=== PATIENT | male | born 1980 | race Caucasian/White ===

== ENCOUNTER 2020-06-09 13:39 | Emergency (ER) | payer OTHER ==
[~2020-06-09] VITALS: Ht 175.3 cm; Wt 86.2 kg
[2020-06-09 17:00] LABS: ABSOLUTE NEUTROPHILS 8.9 thou/uL (1.4-8.2); BASOPHILS 0.4 % (0.0-2.0); EOSINOPHILS 3.2 % (0.0-3.0); HEMATOCRIT 34.4 % (42.0-52.0); LYMPHOCYTES 8.5 % (24.0-44.0); MCH 24.9 pg (26.0-34.0); MONOCYTES 6.2 % (1.0-8.0); PLATELET COUNT 290 thou/uL (150-400); POLYS 81.7 % (36.0-66.0); RBC 4.41 mil/uL (4.50-6.00); RDW 18.5 % (10.5-14.5); WBC 10.9 thou/uL (4.0-11.0)
[2020-06-09 17:08] LABS: CALCIUM 8.8 mg/dL (8.5-10.1); CREATININE 0.9 mg/dL (0.7-1.3)
[2020-06-09 17:14] LABS: ALBUMIN 3.4 g/dL (3.4-5.0); TOTAL BILIRUBIN 0.6 mg/dL (0.2-1.0)
[2020-06-09 17:23] LABS: ANISOCYTOSIS 2+
[2020-06-09 17:24] LABS: MACROCYTES FEW; MICROCYTES 1+
[2020-06-09 17:25] LABS: POLYCHROMASIA OCCASIONAL
[2020-06-09] MEDS ORDERED: FLEXERIL PO (18:36)
[2020-06-09] MEDS ORDERED: MELOXICAM15 MG PO (18:36)
[2020-06-09] MEDS ORDERED: BACTRIM DS TAB1 EAC1 PO (18:36)
[2020-06-09 18:43] VITALS: BP 131/85
[2020-06-10] MEDS ORDERED: NORCO 5-325 TA1 EAC2 PO (03:53)
== END 2020-06-09 18:44 | disposition home or self-care (01) ==
LOC: ER 13:39
PROVIDERS: Physician Assistant
DX: L03.811 Cellulitis of head [any part, except face] (principal)

== ENCOUNTER 2020-06-10 00:27 | Emergency (ER) | payer OTHER ==
[~2020-06-10] VITALS: Ht 175.3 cm; Wt 83.9 kg
[~2020-06-10 00:27] MED LIST: BACTRIM DS TAB1 EAC1 PO; FLEXERIL PO; MELOXICAM15 MG PO
[2020-06-10 03:15] LABS: BASOPHILS 0.3 % (0.0-2.0); EOSINOPHILS 1.5 % (0.0-3.0); HEMATOCRIT 32.6 % (42.0-52.0); HEMOGLOBIN 10.7 gm/dL (14.0-18.0); LYMPHOCYTES 8.8 % (24.0-44.0); MCH 25.9 pg (26.0-34.0); MCHC 32.8 g/dL (28.0-37.0); MONOCYTES 5.9 % (1.0-8.0); PLATELET COUNT 241 thou/uL (150-400); POLYS 83.5 % (36.0-66.0); RBC 4.13 mil/uL (4.50-6.00); RDW 18.7 % (10.5-14.5); WBC 10.7 thou/uL (4.0-11.0)
[2020-06-10 03:25] LABS: CALCIUM 8.6 mg/dL (8.5-10.1); CREATININE 0.8 mg/dL (0.7-1.3); POTASSIUM 3.6 mmol/L (3.5-5.1)
[2020-06-10 03:40] LABS: ALBUMIN 3.2 g/dL (3.4-5.0); TOTAL BILIRUBIN 0.7 mg/dL (0.2-1.0); TOTAL PROTEIN 7.7 g/dL (6.4-8.2)
[2020-06-10] MEDS ORDERED: NORCO 5-325 TA1 EAC2 PO (03:53)
[2020-06-10 05:10] VITALS: BP 155/86
== END 2020-06-10 05:12 | disposition home or self-care (01) ==
LOC: ER 00:27
PROVIDERS: Emergency Medicine
DX: L03.221 Cellulitis of neck (principal); Z79.899 Other long term (current) drug therapy

== ENCOUNTER 2021-07-28 15:45 | Emergency (ER) | payer OTHER ==
[~2021-07-28] VITALS: Ht 175.3 cm; Wt 77.1 kg
[~2021-07-28 15:45] MED LIST changes: +NORCO 5-325 TA1 EAC2 PO
[2021-07-28 15:54] VITALS: BP 130/81
== END 2021-07-28 18:47 | disposition left against medical advice (07) ==
LOC: ER 15:45
DX: S01.511A Laceration without foreign body of lip, initial encounter (principal); S90.32XA Contusion of left foot, initial encounter; S09.90XA Unspecified injury of head, initial encounter; Z79.899 Other long term (current) drug therapy; Z79.1 Long term (current) use of non-steroidal anti-inflammatories (NSAID); Y04.0XXA Assault by unarmed brawl or fight, initial encounter; Y93.89 Activity, other specified; Y92.89 Other specified places as the place of occurrence of the external cause; Y99.8 Other external cause status

== ENCOUNTER 2021-08-20 13:16 | Emergency (ER) | payer OTHER ==
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
--- NOTE | ~2021-08-20 | EMS ---
[address] [address] EMS Patient Care Report Name: DELBERT SAUCEDO Room #: REG SUZY Law#: [id number] Admission: 08/20/21 Attend Phys: Discharge: Date of : 76 Report #: [id number] THIS REPORT FOR: //name// Report Transmitted: 08/20/2021 21:55 EMS Care Summary [place], [place]/[facility] Incident [id number] @ 08/20/2021 12:45 Incident Location [address] [place] [address] Patient DELBERT SAUCEDO Male, 41 Years 1980 Patient Address Chief Complaint COLD Disposition Transported No Lights/[place] Dispatch Reason Sick Person Transported To [facility] Narrative MEDIC 41 DISPATCHED FOR A SICK PERSON. UPON ARRIVAL ON SCENE THE PATIENT WAS FOUND LYING ON HIS SIDE ON THE FLOOR. PD WAS WITH THE PATIENT. PD STATED THE PATIENT ASKED FOR AN AMBULANCE. WHEN ASKED WHY HE WANTED TO GO TO THE HOSPITAL THE PATIENT STATED YES AND THAT HE WAS COLD. THE PATIENT APPEARED IN NO DISTRESS AND WAS HARD TO GET AN ANSWER OUT OF. THE PATIENT WAS HELPED UP AND SAT ON THE STRETCHER AND TAKEN OUT TO THE AMBULANCE WITHOUT INCIDENT. IN THE AMBULANCE THE PATIENT REFUSED ALL VITALS AND ASSESSMENT. NO CHANGES IN PATIENT CONDITION WERE SEEN DURING TRANSPORT. UPON ARRIVAL TO THE HOSPITAL THE PATIENT WAS MOVED TO ED TRIAGE AREA AND CARE WAS TRANSFERRED TO THE TRIAGE NURSE Initial Vitals @13:01GCS: 15, [address] [place] [address] EMS Patient Care Report Name: DELBERT SAUCEDO Room #: REG SUZY Law#: [id number] Admission: 08/20/21 Attend Phys: Discharge: Date of : 76 Report #: [id number] Assessments @13:05MENTAL:SKIN:HEENT:Head/Face: No Abnormalities,Neck/Airway: No Abnormalities,LUNG SOUNDS:ABDOMEN:PELVIS//GI:EXTREMITIES:PULSE:NEURO:@13:07MENTAL:SKIN:HEENT:Head /Face: No Abnormalities,Neck/Airway: No Abnormalities,LUNG SOUNDS:ABDOMEN:PELVIS//GI:EXTREMITIES:PULSE:NEURO: Impression Alcohol use Procedures @12:57 ALS Assessment Response: UnchangedSucceeded @13:00 Stretcher Response: Unchanged Timeline 12:44,Call Received 12:44,Dispatch Notified 12:45,Dispatched 12:45,En Route 12:56,On Scene 12:57,At Patient 12:57,ALS Assessment,Response: UnchangedSucceeded, 13:00,Stretcher,Response: Unchanged 13:01,BP: / M,PULSE: ,RR: R,SPO2: Ox,ETCO2: ,BG: ,PAIN: ,GCS: 15, 13:04,Depart Scene 13:12,At Destination 13:27,Call Closed Disclaimer v1.1 Copyright 2021 [employer] This EMS Care Summary contains data elements from the applicable legal record (which may be displayed differently). It is designed to provide pertinent information for the following purposes: continuity of care, clinical quality, and state data reporting. The complete legal record is available to ED staff and administrators of the receiving hospital in [facility]'s Patient Tracker. All data is provided "as is."
== END 2021-08-20 15:10 | disposition home or self-care (01) ==
LOC: ER 13:16
DX: F10.129 Alcohol abuse with intoxication, unspecified (principal); R53.83 Other fatigue; Z79.899 Other long term (current) drug therapy; Y90.9 Presence of alcohol in blood, level not specified

== ENCOUNTER 2021-09-03 03:30 | Emergency (ER) | payer OTHER ==
[~2021-09-03] VITALS: Ht 172.7 cm; Wt 81.2 kg
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
[2021-09-03 05:27] VITALS: BP 132/68
== END 2021-09-03 05:56 | disposition home or self-care (01) ==
LOC: ER 03:30
DX: T68.XXXA Hypothermia, initial encounter (principal)

== ENCOUNTER 2021-09-12 10:19 | Emergency (ER) | payer OTHER ==
[~2021-09-12] VITALS: Ht 177.8 cm; Wt 81.7 kg
[2021-09-12 10:20] VITALS: BP 145/110
== END 2021-09-12 11:20 | disposition home or self-care (01) ==
LOC: ER 10:19
DX: J00 Acute nasopharyngitis [common cold] (principal); Z59.00 Homelessness unspecified